=== PATIENT | female | born 1985 | race Caucasian/White ===

== ENCOUNTER 2017-10-21 00:15 | Emergency (ER) | payer OTHER ==
[~2017-10-21] VITALS: Ht 162.6 cm; Wt 40.8 kg
[~2017-10-21 00:15] MED LIST: CALTRATE 600 W-1 TAB; FOLIC ACID0.4 MG; HEMATRON P.O.1 UDTAB; KEFLEX500 MG PO; OBTREX PRENATAL1 TAB; TERBUTALINE SULF5 MG PO
[2017-10-21] MEDS ORDERED: ZYRTEC10 M3 PO (05:08)
[2017-10-21] MEDS ORDERED: MEDROL4 MG PO (05:08)
== END 2017-10-21 05:17 | disposition home or self-care (01) ==
LOC: ER 00:15
DX: M25.475 Effusion, left foot (principal)